=== PATIENT | male | born 2000 | race Caucasian/White ===

== ENCOUNTER 2018-01-21 11:46 | Emergency (ER) | payer OTHER ==
[~2018-01-21] VITALS: Ht 195.6 cm; Wt 134.0 kg
[2018-01-21] MEDS ORDERED: HYDROcodone/acetaminophen 5mg/325mg tablet PO ONE (12:30)
[2018-01-21] MEDS ORDERED: IBUP-1985 PO (12:35)
[2018-01-21] MEDS ORDERED: METH-360 PO (12:35)
[2018-01-21 14:01] VITALS: BP 134/76
== END 2018-01-21 14:04 | disposition home or self-care (01) ==
LOC: ER 11:48
DX: M70.32 Other bursitis of elbow, left elbow (principal); Y93.89 Activity, other specified
CPT/HCPCS: 73070; 93971; 99284

== ENCOUNTER 2020-09-17 12:42 | Emergency (ER) | payer OTHER ==
[~2020-09-17] VITALS: Ht 198.1 cm; Wt 152.8 kg
[~2020-09-17 12:42] MED LIST: IBUP-1985 PO; METH-360 PO
[2020-09-17 13:06] VITALS: BP 125/74
== END 2020-09-17 14:35 | disposition home or self-care (01) ==
LOC: ER 12:42
DX: S69.92XA Unspecified injury of left wrist, hand and finger(s), initial encounter (principal); S60.222A Contusion of left hand, initial encounter; M79.89 Other specified soft tissue disorders; M79.642 Pain in left hand; X58.XXXA Exposure to other specified factors, initial encounter; Y93.89 Activity, other specified; Y92.89 Other specified places as the place of occurrence of the external cause; Y99.8 Other external cause status
CPT/HCPCS: 29125; 73130; 99283